=== PATIENT | female | born 1955 ===

== ENCOUNTER 2024-04-17 05:26 | Day surgery (SDC) | payer OTHER ==
[~2024-04-17 05:26] MED LIST: ALONDRONATE; AMLODIPINE-OLM1 EACH; ATORVASTATIN CA10 MG; LOSARTAN POTAS100 MG; MYRBETRIG; OMEGA 3
[2024-04-17] MEDS ORDERED: MACROBID 100 M100 MG PO (13:04)
[2024-04-17] MEDS ORDERED: TRAM1TAB98 PO (13:05)
[2024-04-17] MEDS ORDERED: CIPROFLOXACIN IN 5 % DEXTROSE 400 MG/200 ML PIGGYBAG IV ONE (13:15)
[2024-04-17] MEDS ORDERED: MORPHINE SULFATE 4 MG/ML VIAL IV ONE (17:05)
== END 2024-04-17 17:35 | disposition home or self-care (01) ==
LOC: CIR.AMB 05:26
PROVIDERS: ATTEND Obstetrics & Gynecology Gynecology
DX: N39.3 Stress incontinence (female) (male) (principal); Z88.0 Allergy status to penicillin; Z88.6 Allergy status to analgesic agent
CPT/HCPCS: 57288; C1771